=== PATIENT | male | born 1960 | race Two or more races ===

== ENCOUNTER 2025-11-07 15:08 | Inpatient (IN) | payer BC, OTHER ==
[~2025-11-07] VITALS: Ht 190.5 cm; Wt 124.9 kg
--- NOTE | 2025-11-07 15:24 | ECG ---
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
[2025-11-07 15:25] VITALS: PULSE 168; RESP 18; O2SAT 93
--- NOTE | 2025-11-07 15:45 | ECG ---
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
--- NOTE | 2025-11-07 15:46 | ED.PDOC ---
HPI Comments HPI: Patel 65 y.o male presents to the ED for a chief complaint of palpitations associated with SOB and dizziness that started earlier today. Patient reports being seen at [facility] however was referred to the ED s/p HR reading in the 160's. Patient reports a burning smell and her family did not have the same smell sensation. Patient mentions 6 years ago similar c/o, was seen by paratransit operator who performed a full cardiac evaluation and found no abnormalities. Since, has had no cardiac issues or symptoms up until today. He denies any nausea, vomiting, fever, chills, abdominal pain or leg swelling. Initial Vitals BP: 103/66 HR: 180 RR: 24 O2: 98% RA Temp: 98.2 F Past Medical History: Kidney cancer, HTN, HLD, hernia, enlarged prostate Past Surgical History: Right nephrectomy Social History: Denies Allergies: NKDA HPI: Poor Historian. Valsalva maneuver was attempted as soon as I saw the patient. Patient's heart rate was in the 160s with EKGs showing SVT. Patient converted to sinus rhythm without any medications. REVIEW OF SYSTEMS: CONSTITUTIONAL: Denies acute: fever, diaphoresis, chills, HEAD: Denies acute: headache, photophobia Eyes: Denies acute: Double vision, vision loss, eye pain, eye discharge. EARS: Denies acute: tinnitus, hearing loss, ear discharge, ear pain, THROAT: Denies acute: sore throat, swelling, difficulty swallowing , pain with swallowing, change in voice. NECK: Denies acute: neck pain, neck swelling, stiff neck. HEART: Denies acute : chest pain, LUNGS: Denies acute: wheezing, cough, hemoptysis ABDOMEN: Denies acute: abdominal pain, Nausea, Vomiting, diarrhea, melena , hematemesis, hematochezia SKIN: Denies acute: rash, redness, lesions, itchiness. EXTREMITIES: Denies acute: calf pain, numbness, tingling, weakness, denies pain in extremity. Denies acute: Low back pain. Neuro: Denies acute: focal neurological deficit, motor or sensory focal neurological deficit, tremors, seizure like activity, confusion, change in mental status, loss of bowel or bladder function, cauda equina like symptoms. : Denies acute: dysuria, hematuria, flank pain, increase in urinary frequency. PSYCH: Denies acute: hallucination, suicidal ideation, homicidal ideation. PHYSICAL EXAM: General: ---moderate-----acute distress, awake and alert. Head: normocephalic, atraumatic. No raccoon's eyes, no duran sign. Neck: supple, trachea is midline, no swelling. Throat: Normal phonation. Eyes:, no erythema, no purulent discharge, no proptosis, no icterus. Heart: regular tachycardic, no significant murmur appreciated. Lungs: no apparent respiratory distress, Able to speak in full sentences. No wheezing, no rhonchi, no crackles. No stridors Clear to auscultation bilaterally. Abdomen: non tender to palpation, non distended, soft, no guarding, no rebound, + bowel sounds. Neuro: Awake, Alert, oriented to name, self, situation, follows commands GCS=15. Speech is normal. Skin: no petechia, no purpura, no cyanosis, non-pale, not jaundice. Lower extremities: --trace bilateral - Pitting edema no deformity, no focal swelling, no calf TTP. Makes eye contact. moves all four extremities. Face: no apparent facial droop. Ambulating in the ED independently. ED COURSE: DISCLAIMER: This medical document was created using an electronic medical record system with voice recognition software and computerized dictation system. Although this document has been carefully reviewed, there might still be some phonetic and typographical errors. Occasional wrong-word or "sound-alike" substitutions may have occurred due to the inherent limitations of voice recognition software. These areas are purely typographical due to imperfections of the software programs and do not reflect any compromise in the patient's medical care. Please read the chart carefully and recognize, using context, where these substitutions have occurred. Chief Complaint: Palpitations Time Seen by MD: 15:14 Reviewed Notes: Allergies Allergies: Coded Allergies: NO KNOWN ALLERGIES (Unverified , 11/07/25) Information Source: Patient Mode of Arrival: Ambulatory Severity: Moderate Timing: Hours Was a procedure done? Was a procedure done?: Yes Sedation Sedation?: No Cardioversion Vagal maneuver: Were attempted Attempts: x1 Resulted Rhythm: NSR Direct Supervision: Yes Informed consent obtained: Yes Risks/benefits/alt described: Yes Notes Valsalva maneuver was attempted as soon as I saw the patient. Patient's heart rate was in the 160s with EKGs showing SVT. Patient converted to sinus rhythm without any medications. CP Differential Dx Differential Diagnosis: N/A Differential Diagnosis: Angina, Aortic dissection, Chest Wall Pain, Cholelithiasis, Costochondritis, Pericarditis X-Ray, Labs, Meds, VS Vital Signs Date Time Temp Pulse Resp B/P (MAP) Pulse Ox O2 Delivery O2 Flow Rate FiO2 11/07/25 16:16 90 11/07/25 15:46 96 11/07/25 15:37 98.1 95 18 114/77 (89) 95 98.1 11/07/25 15:25 168 11/07/25 15:25 168 18 93 Room Air* 0 21 11/07/25 15:25 168 18 103/66 (78) 93 11/07/25 15:17 165 11/07/25 15:14 98.2 180 24 98 98.2 Lab Test 11/07/25 18:45 11/07/25 17:40 11/07/25 17:15 11/07/25 16:40 Range/Units Troponin I High Sensitivity Pending 88 *H </=54 ng/L Lactic Acid Level 1.5 0.4-2.0 mmol/L Urine Color Light-yellow Yellow Urine Clarity Clear Clear Urine pH 5.0 5.0-9.0 Urine Specific [place] 1.012 1.001-1.035 Urine Protein 1+ H Negative Urine Ketones Negative Negative Urine Blood Trace H Negative /uL Urine Nitrite Negative Negative Urine Bilirubin Negative Negative Urine Urobilinogen Normal Negative mg/dL Urine Leukocyte Esterase Negative Negative /uL Urine RBC 1 0 - 3 /hpf Urine Microscopic WBC 4 H 0-3 /HPF Urine Squamous Epithelial Cells Few <5 /hpf Urine Bacteria None seen None Seen /hpf Urine Mucus Few None Seen Urine Glucose Normal Normal mg/dL Test 11/07/25 15:45 Range/Units White Blood Count 11.9 H 4.4-10.8 10^3/uL Red Blood Count 5.37 4.5-5.90 10^6/uL Hemoglobin 15.5 13.5-17.5 g/dL Hematocrit 46.7 41.0-53.0 % Mean Corpuscular Volume 86.9 80.0-100.0 fL Mean Corpuscular Hemoglobin 29.0 28.0-32.0 pg Mean Corpuscular Hemoglobin Concent 33.3 32.0-36.0 g/dL Red Cell Distribution Width 13.2 11.8-14.3 % Platelet Count 237 140-450 10^3/uL Mean Platelet Volume 8.5 6.9-10.8 fL Neutrophils (%) (Auto) 81.6 H 37.0-80.0 % Lymphocytes (%) (Auto) 11.6 10.0-50.0 % Monocytes (%) (Auto) 5.5 0.0-12.0 % Eosinophils (%) (Auto) 0.8 0.0-7.0 % Basophils (%) (Auto) 0.5 0.0-2.0 % Neutrophils # (Auto) 9.7 H 1.6-8.6 10 ^3/uL Lymphocytes # (Auto) 1.4 0.4-5.4 10 ^3/uL Monocytes # (Auto) 0.7 0-1.3 10 ^3/uL Eosinophils # (Auto) 0.1 0-0.8 10 ^3/uL Basophils # (Auto) 0.1 0-0.2 10 ^3/uL Nucleated Red Blood Cells 0.1 % Sodium Level 138 136-145 mmol/L Potassium Level 3.9 3.5-5.1 mmol/L Chloride Level 104 98-107 mmol/L Carbon Dioxide Level 23 20-31 mmol/L Anion Gap 11 5-15 Blood Urea Nitrogen 22 9-23 mg/dL Creatinine 1.31 H 0.700-1.30 mg/dL Glomerular Filtration Rate Calc 61 >90 mL/min BUN/Creatinine Ratio 16.8 10.0-20.0 Serum Glucose 161 H 74-106 mg/dL Lactic Acid Level 2.6 *H 0.4-2.0 mmol/L Calcium Level 8.8 8.7-10.4 mg/dL Magnesium Level 2.0 1.6-2.6 mg/dL Total Bilirubin 0.4 0.2-1.0 mg/dL Aspartate Amino Transferase (AST) 51 H 13-40 U/L Alanine Aminotransferase (ALT) 74 H 7-40 U/L Alkaline Phosphatase 78 46-116 U/L Troponin I High Sensitivity 27 </=54 ng/L Total Protein 6.6 5.7-8.2 g/dL Albumin 4.2 3.2-4.8 g/dL Thyroid Stimulating Hormone (TSH) 2.07 0.55-4.78 uIU/mL Current Medications Medications (Trade) Dose Ordered Sig/Calvin Route Start Time Stop Time Status Last Admin Sodium Chloride 1,000 ml @ 1,000 mls/hr Q1H ONCE IV 11/07/25 15:30 11/07/25 16:29 DC 11/07/25 16:05 Aspirin 325 mg ONCE ONCE PO 11/07/25 17:15 11/07/25 17:16 DC 11/07/25 17:28 [place] [id number] Ph: [phone] DIAGNOSTIC IMAGING Diagnostic Imaging Report : [id number] Signed PATIENT: DEWAYNE PATEL ACCT: [id number] UNIT: [id number] : 1960 LOC: ER ROOM / BED: / AGE / SEX: 65 / M ADM STATUS: REG ER SERVICE 11 ORDERING PHYSICIAN: RASHEEDA KAHN MD PROCEDURE(s): CXR1 - CHEST XRAY 1 VIEW REASON: PALPITATIONS ORDER NUMBER(s): [id number], ACCESSION NUMBER(s): [id number] CHEST RADIOGRAPH INDICATION: PALPITATIONS TECHNIQUE: Single frontal view of the chest was obtained COMPARISON: None FINDINGS: Lines and Tubes: None Lungs: No focal consolidation. Pleura: No effusion. No pneumothorax. Cardiomediastinal contours: Unremarkable Bones: No acute osseous abnormality. IMPRESSION: 1. No acute cardiopulmonary disease. ATED BY: SANJIV MICHELLE Jr., DO DICTATED DATE/TIME: 11/07/251610 SIGNED BY: SANJIV MICHELLE Jr., DO SIGNED DATE/TIME: 11/07/251610 CC: Time of 1ST Reevaluation: 15:45 Reevaluation 1ST: Unchanged Patient Education/Counseling: Diagnosis, Treatment Family Education/Counseling: No Family Present Departure 1 Departure Time of Disposition: 15:55 Impression: Primary Impression: SVT (supraventricular tachycardia) Additional Impression: Elevated troponin Disposition: 09 ADMITTED INPATIENT Admit to: Tele Condition: Guarded Discharged With: Self Critical Care Note Critical Care Time?: No Heart Score Heart Score: Heart Score Response (Comments) Value History N/A 0 EKG N/A 0 Age N/A 0 Risk Factors N/A 0 Troponin N/A 0 Total 0 I personally scribed for CHANELLE SHCROEDER DO ([email or web address]) on 11/07/25 at 15:46. Electronically submitted by Ely Stacy ([facility]). I personally scribed for CHANELLE SCHROEDER DO ([email or web address]) on 11/07/25 at 16:11. Electronically submitted by Ely Stacy ([facility]). I personally scribed for CHANELLE SCHROEDER DO ([email or web address]) on 11/07/25 at 19:02. Electronically submitted by Ely Stacy ([facility]). CHANELLE SCHROEDER DO Nov 07, 2025 15:46
[2025-11-07 16:03] LABS: Hematocrit 46.7 % (41.0-53.0); Hemoglobin 15.5 g/dL (13.5-17.5); Mean Corpuscular Hemoglobin 29.0 pg (28.0-32.0); Mean Corpuscular Volume 86.9 fL (80.0-100.0); Nucleated Red Blood Cells % 0.1 %
[2025-11-07] MEDS: SODIUM CHLORIDE 0.9% 1,000 ML IV ONE ×2 (16:05→19:57)
--- NOTE | 2025-11-07 16:14 | DVH ---
CHEST RADIOGRAPH INDICATION: PALPITATIONS TECHNIQUE: Single frontal view of the chest was obtained COMPARISON: None FINDINGS: Lines and Tubes: None Lungs: No focal consolidation. Pleura: No effusion. No pneumothorax. Cardiomediastinal contours: Unremarkable Bones: No acute osseous abnormality. IMPRESSION: 1. No acute cardiopulmonary disease.
[2025-11-07 16:23] LABS: Alanine Aminotransferase 74 U/L (7-40); Albumin 4.2 g/dL (3.2-4.8); Alkaline Phosphatase 78 U/L (46-116); Anion Gap 11 (5-15); BUN/Creatinine Ratio 16.8 (10.0-20.0); Blood Urea Nitrogen 22 mg/dL (9-23); Calcium 8.8 mg/dL (8.7-10.4); Carbon Dioxide 23 mmol/L (20-31); Chloride 104 mmol/L (98-107); Glucose 161 mg/dL (74-106); Magnesium 2.0 mg/dL (1.6-2.6); Potassium 3.9 mmol/L (3.5-5.1); Sodium 138 mmol/L (136-145); Total Protein 6.6 g/dL (5.7-8.2)
[2025-11-07 16:24] LABS: Bilirubin, Total 0.4 mg/dL (0.2-1.0)
[2025-11-07 16:25] LABS: Lactic Acid w/Reflex 2.6 mmol/L (0.4-2.0)
[2025-11-07 17:32] LABS: Urine Protein, UAD 1+ (Negative)
[2025-11-07 19:44] VITALS: PULSE 77; RESP 18; O2SAT 94
[2025-11-07] MEDS ORDERED: ONDANSETRON HCL 4 MG/2 ML VIAL IV PRN (19:45)
[2025-11-07] MEDS ORDERED: HYDROcodone-ACET 5/325MG TAB PO PRN (19:45)
[2025-11-07] MEDS ORDERED: DOCUSATE SOD 100 MG CAP PO PRN (19:45)
--- NOTE | 2025-11-07 20:03 | DVHHP2 ---
History of Present Illness Reason for Visit: SVT (supraventricular tachycardia) History of Present Illness The patient is a 65-year-old male with past medical history of kidney cancer, hypertension, hernia, hyperlipidemia, and enlarged prostate who presented to [facility] ED with complaint of palpitations. Patient reports that he has been experiencing racing heart associated with shortness of breaths, dizziness, getting worse that prompted this visit. Patient reports being seen at [facility] urgent care, however was referred to the ED due to elevated heart rate in the 160s. Patient reports burning smell and her family did not have the same smell sensation, reports similar symptoms 6 years ago and was seen by machine repairman who performed a full cardiac evaluation and found no abnormalities..Patient was seen and evaluated in the ED, laboratory data shows WBC 11.9, platelets 237, sodium 138, potassium 3.9, BUN 22, creatinine 1.31, GFR 61, glucose 161, hemoglobin A1c 6.0, calcium 8.8, lactic acid 2.6 trending down to 1.5, troponin 88, TSH 2.07, AST 51, ALT 74, blood pressure 114/77, heart rate 180 trending down to 96, temperature 98.1 F, O2 saturation 95% on oxygen. Chest x-ray show no acute cardiopulmonary disease. Please see medication orders section in the computer. On my assessment, patient denied chest pain, no headache, dizziness, diaphoresis, shortness of breaths, no abdominal pain, diarrhea, nausea, vomiting, fever, no chills. Patient was admitted for further evaluation and medical management. Past Medical History Kidney cancer, HTN, HLD, Hernia, Enlarged prostate Past Surgical History Right nephrectomy Family History Reviewed, noncontributory to the management of this case. Past Social History The patient lives at home, denies smoking, alcohol or illicit drugs abuse. Review of Systems Constitutional: Yes: Weakness; No: Fever, Chills, Sweats, Malaise, Other Eyes: No: Pain, Vision change, Conjunctivae inflammation, Eyelid inflammation, Other, Redness ENT: No: Ear pain, Ear discharge, Nose pain, Nose discharge, Nose congestion, Mouth pain, Mouth swelling, Throat pain, Throat swelling, Other Respiratory: Shortness of breath; No: Cough, Dry, SOB with excertion, Wheezing, Hemoptysis, Pleuritic Pain, Sputum, Wheezing, Other Cardiovascular: Palpitations; No: Chest Pain, Orthopnea, Paroxysmal Noc. Dyspnea, Edema, Lt Headedness, Other Gastrointestinal: No: Nausea, Vomiting, Abdominal Pain, Diarrhea, Constipation, Melena, Hematochezia, Other Genitourinary: No Dysuria, No Frequency, No Incontinence, No Hematuria, No Retention, No Other Musculoskeletal: No: other, neck pain, shoulder pain, arm pain, back pain, hand pain, leg pain, foot pain Skin: No: Rash, Lesions, Jaundice, Bruising, Other Neurological: Other (Dizziness); No: Weakness, Numbness, Incoordination, Change in speech, Confusion, Seizures Allergies: Coded Allergies: NO KNOWN ALLERGIES (Unverified , 11/07/25) Medications Current Medications Medications Dose Ordered Sig/Calvin Route Start Time Stop Time Status Last Admin Dose Admin Atorvastatin Calcium 20 mg HS PO 11/07/25 22:00 UNV Aspirin 81 mg DAILY PO 11/08/25 10:00 UNV Tamsulosin HCl 0.4 mg QPM PO 11/08/25 18:00 UNV Metoprolol Tartrate 25 mg BID PO 11/07/25 22:00 UNV Ceftriaxone Sodium 50 ml @ 100 mls/hr DAILY@09 IV 11/08/25 09:00 UNV Sodium Chloride 1,000 ml @ 60 mls/hr [id number] IV 11/07/25 19:45 UNV Acetaminophen/ Hydrocodone Bitart 1 tab Q4HP PRN PO 11/07/25 19:45 UNV Ondansetron HCl 4 mg Q4HP PRN IV 11/07/25 19:45 UNV Docusate Sodium 100 mg BIDPRN PRN PO 11/07/25 19:45 UNV Acetaminophen 650 mg Q6HP PRN PO 11/07/25 19:45 UNV Exam Vital Signs Vital Signs Date Time Temp Pulse Resp B/P (MAP) Pulse Ox O2 Delivery O2 Flow Rate FiO2 11/07/25 19:44 77 18 94 Room Air* 0 21 11/07/25 19:30 97.9 118/77 (91) 97.9 General Appearance: Alert, Oriented X3, Cooperative, No acute distress HEENT: Atraumatic, PERRLA, EOMI, Mucous membr. moist/pink Respiratory: Normal air movement Cardiovascular: Normal S1, Normal S2, No murmurs, Other (Irregular rate) Abdominal: Normal bowel sounds, Soft, No tenderness, No hepatospenomegaly, No masses Extremities: No clubbing, No cyanosis, No edema, Normal pulses, No tenderness/swelling Skin: No rashes, No significant lesion Neuro: Normal speech, Normal tone, Sensation intact, Cranial nerves 3-12 NL, Reflexes 2+, Other (Generalized weakness) Psych/Mental Status: Mental status NL, Mood NL Labs/Xrays Labs Test 11/07/25 18:45 11/07/25 17:40 11/07/25 17:15 11/07/25 15:45 Range/Units Troponin I High Sensitivity 340 *H </=54 ng/L Lactic Acid Level 1.5 0.4-2.0 mmol/L Urine Color Light-yellow Yellow Urine Clarity Clear Clear Urine pH 5.0 5.0-9.0 Urine Specific [place] 1.012 1.001-1.035 Urine Protein 1+ H Negative Urine Ketones Negative Negative Urine Blood Trace H Negative /uL Urine Nitrite Negative Negative Urine Bilirubin Negative Negative Urine Urobilinogen Normal Negative mg/dL Urine Leukocyte Esterase Negative Negative /uL Urine RBC 1 0 - 3 /hpf Urine Microscopic WBC 4 H 0-3 /HPF Urine Squamous Epithelial Cells Few <5 /hpf Urine Bacteria None seen None Seen /hpf Urine Mucus Few None Seen Urine Glucose Normal Normal mg/dL White Blood Count 11.9 H 4.4-10.8 10^3/uL Red Blood Count 5.37 4.5-5.90 10^6/uL Hemoglobin 15.5 13.5-17.5 g/dL Hematocrit 46.7 41.0-53.0 % Mean Corpuscular Volume 86.9 80.0-100.0 fL Mean Corpuscular Hemoglobin 29.0 28.0-32.0 pg Mean Corpuscular Hemoglobin Concent 33.3 32.0-36.0 g/dL Red Cell Distribution Width 13.2 11.8-14.3 % Platelet Count 237 140-450 10^3/uL Mean Platelet Volume 8.5 6.9-10.8 fL Neutrophils (%) (Auto) 81.6 H 37.0-80.0 % Lymphocytes (%) (Auto) 11.6 10.0-50.0 % Monocytes (%) (Auto) 5.5 0.0-12.0 % Eosinophils (%) (Auto) 0.8 0.0-7.0 % Basophils (%) (Auto) 0.5 0.0-2.0 % Neutrophils # (Auto) 9.7 H 1.6-8.6 10 ^3/uL Lymphocytes # (Auto) 1.4 0.4-5.4 10 ^3/uL Monocytes # (Auto) 0.7 0-1.3 10 ^3/uL Eosinophils # (Auto) 0.1 0-0.8 10 ^3/uL Basophils # (Auto) 0.1 0-0.2 10 ^3/uL Nucleated Red Blood Cells 0.1 % Sodium Level 138 136-145 mmol/L Potassium Level 3.9 3.5-5.1 mmol/L Chloride Level 104 98-107 mmol/L Carbon Dioxide Level 23 20-31 mmol/L Anion Gap 11 5-15 Blood Urea Nitrogen 22 9-23 mg/dL Creatinine 1.31 H 0.700-1.30 mg/dL Glomerular Filtration Rate Calc 61 >90 mL/min BUN/Creatinine Ratio 16.8 10.0-20.0 Serum Glucose 161 H 74-106 mg/dL Calcium Level 8.8 8.7-10.4 mg/dL Magnesium Level 2.0 1.6-2.6 mg/dL Total Bilirubin 0.4 0.2-1.0 mg/dL Aspartate Amino Transferase (AST) 51 H 13-40 U/L Alanine Aminotransferase (ALT) 74 H 7-40 U/L Alkaline Phosphatase 78 46-116 U/L Total Protein 6.6 5.7-8.2 g/dL Albumin 4.2 3.2-4.8 g/dL Thyroid Stimulating Hormone (TSH) 2.07 0.55-4.78 uIU/mL PATIENT: DEWAYNE PATEL ACCT: [id number] UNIT: [id number] : 1960 LOC: ER ROOM / BED: / AGE / SEX: 65 / M ADM STATUS: REG ER SERVICE [id number] ORDERING PHYSICIAN: RASHEEDA KAHN MD PROCEDURE(s): CXR1 - CHEST XRAY 1 VIEW REASON: PALPITATIONS ORDER NUMBER(s): [id number], ACCESSION NUMBER(s): [id number] CHEST RADIOGRAPH INDICATION: PALPITATIONS TECHNIQUE: Single frontal view of the chest was obtained COMPARISON: None FINDINGS: Lines and Tubes: None Lungs: No focal consolidation. Pleura: No effusion. No pneumothorax. Cardiomediastinal contours: Unremarkable Bones: No acute osseous abnormality. IMPRESSION: 1. No acute cardiopulmonary disease. SEPSIS Sepsis Screen Date sepsis recognized/suspect: Nov 07, 2025 Time Sepsis recognized/suspect: 1943 Recent Procedure: No On Antibiotic Therapy: No Respiratory Rate >20: No Heart Rate >90: No Temp<36 C (96.8 F) or >38.3 C: No SBP <90 or MAP <65 mmHG: No New Acute Mental Status Change: No Is the patient on CPAP, BIPAP,: No Physician Orders Electrocardigram (11/07/25 18:12) Chest Xray 1 View (11/07/25 15:12) Benzene Still Utility Operator (11/07/25 ) Cardiac Diet-2gna,Lofat,Lochol (11/07/25 Dinner) Sodium Chloride 0.9% (11/07/25 19:30) Atorvastatin (Lipitor) (11/07/25 22:00) Aspirin Chewable Tablet (11/08/25 10:00) Tamsulosin Hydrochloride (Flomax) (11/08/25 18:00) Hemoglobin A1c (11/07/25 19:37) Metoprolol Tartrate Tablet (Lopressor Ta (11/07/25 22:00) Troponin-I Hs (11/07/25 20:37) Troponin-I Hs (11/07/25 22:37) * Cardiology Consult (11/07/25 19:37) Ceftriaxone 1gm/50ml (Rocephin) (11/08/25 09:00) Ceftriaxone 1gm/50ml (Rocephin) (11/07/25 19:45) Allergies (11/07/25 19:37) Code Status (11/07/25 19:37) Sodium Chloride 0.9% (11/07/25 19:45) Oxygen Per Hour (11/07/25 19:37) Hydrocodone-Acet 5/325mg Tab (Luke 5/32 (11/07/25 19:45) Ondansetron Hcl (Zofran) (11/07/25 19:45) Docusate Sodium Capsule (Colace Capsule) (11/07/25 19:45) Fall Risk Precautions In Place QSHIFT (11/07/25 19:37) Complete Blood Count (11/08/25 04:00) Comprehensive Metabolic Panel (11/08/25 04:00) Condition: Serious (11/07/25 19:37) Acetaminophen Tablet (Tylenol Tablet) (11/07/25 19:45) Maintain Bed Rest (11/07/25 19:37) Sequential Compression Device (11/07/25 ) Admit (11/07/25 20:02) Nitroglycerin Sublingual (Ntrostat Subli (11/07/25 20:15) Morphine Sulfate Injection (11/07/25 20:15) Stat Ekg For Chest Pain (11/07/25 20:02) Notify Of Changes From Base (11/07/25 20:02) Marketing Programs Specialist For 24 Hours (11/07/25 20:02) Emergency Dysrhythmia Protocol (11/07/25 20:02) Rhythm Strips Once Every Shift (11/07/25 20:02) Oxygen By Nasal Cannula (11/07/25 20:02) Vital Signs Date Time Temp Pulse Resp B/P (MAP) Pulse Ox O2 Delivery O2 Flow Rate FiO2 11/07/25 19:44 77 18 94 Room Air* 0 21 11/07/25 19:30 97.9 77 18 118/77 (91) 94 97.9 11/07/25 16:16 90 11/07/25 15:46 96 11/07/25 15:37 98.1 95 18 114/77 (89) 95 98.1 11/07/25 15:25 168 11/07/25 15:25 168 18 93 Room Air* 0 21 11/07/25 15:25 168 18 103/66 (78) 93 11/07/25 15:17 165 11/07/25 15:14 98.2 180 24 98 98.2 Laboratory Tests Test 11/07/25 15:45 11/07/25 17:40 Lactic Acid Level 2.6 mmol/L (0.4-2.0) *H 1.5 mmol/L (0.4-2.0) White Blood Count 11.9 10^3/uL (4.4-10.8) H Medications Medications Dose Ordered Sig/Calvin Route Start Time Stop Time Status Last Admin Dose Admin Aspirin 325 mg ONCE ONCE PO 11/07/25 17:15 11/07/25 17:16 DC 11/07/25 17:28 325 MG Sodium Chloride 1,000 ml @ 1,000 mls/hr Q1H ONCE IV 11/07/25 15:30 11/07/25 16:29 DC 11/07/25 16:05 1,000 MLS/HR Sodium Chloride 1,000 ml @ 1,000 mls/hr Q1H ONCE IV 11/07/25 19:30 11/07/25 20:29 11/07/25 19:57 1,000 MLS/HR Assessment/Plan Assessment/Plan SVT (supraventricular tachycardia) Elevated troponin Hyperglycemia Elevated liver enzymes Leukocytosis, unspecified Plan 1. Admit to telemetry unit 2. Breathing treatment 3. Pain control management 4. IV antibiotic management 5. Management of fluids and electrolytes 6. Consultation for Cardiology 7. Diagnostic test chest x-ray 8. DVT prophylaxis-on aspirin 9. Repeat labs CBC, CMP in a.m. 10. Home medication reviewed and reconciled 11. Continue with current medical management 12. Treatment plan discussed with patient and RN. Patient verbalized understanding. Plan discussed with: Patient, Other (RN) My Orders Orders - SMITH MOSS DNP Procedure Category Date Status Time Atorvastatin (Lipitor) PHA 11/07/25 Logged 22:00 Aspirin Chewable PHA 11/08/25 Logged Tablet 10:00 Tamsulosin PHA 11/08/25 Logged Hydrochloride (Flomax) 18:00 Hemoglobin A1c LAB 11/07/25 In Process 19:37 Metoprolol Tartrate PHA 11/07/25 Logged Tablet (Lopressor Ta 22:00 Troponin-I Hs LAB 11/07/25 Logged 20:37 Troponin-I Hs LAB 11/07/25 Logged 22:37 * Cardiology Consult CONS 11/07/25 Transmitted 19:37 Ceftriaxone 1gm/50ml PHA 11/08/25 Logged (Rocephin) 09:00 Ceftriaxone 1gm/50ml PHA 11/07/25 Logged (Rocephin) 19:45 Allergies RAFI 11/07/25 In Process 19:37 Code Status CODE 11/07/25 Transmitted 19:37 Sodium Chloride 0.9% PHA 11/07/25 Logged 19:45 Oxygen Per Hour RT 11/07/25 Transmitted 19:37 Hydrocodone-Acet PHA 11/07/25 Logged 5/325mg Tab (Luke 19:45 Ondansetron Hcl [facility] 11/07/25 Logged (Zofran) 19:45 Docusate Sodium [facility] 11/07/25 Logged Capsule (Colace 19:45 Fall Risk Precautions [facility] 11/07/[address] 19:37 Complete Blood Count LAB 11/08/25 Verified 04:00 Comprehensive LAB 11/08/25 Verified Metabolic Panel 04:00 Condition: Serious [facility] 11/07/25 In Process 19:37 Acetaminophen Tablet [facility] 11/07/25 Logged (Tylenol Tablet) 19:45 Maintain Bed Rest [facility] 11/07/25 In Process 19:37 Sequential [facility] 11/07/25 In Process Compression Device Admit ADMIT 11/07/25 Verified 20:02 Nitroglycerin [facility] 11/07/25 Verified Sublingual (Ntrostat 20:15 Morphine Sulfate [facility] 11/07/25 Verified Injection 20:15 Stat Ekg For Chest [facility] 11/07/25 Verified Pain 20:02 Notify Md Of Changes [facility] 11/07/25 Verified From Base 20:02 Marketing Programs Specialist For [facility] 11/07/25 Verified 24 Hours 20:02 Emergency Dysrhythmia [facility] 11/07/25 Verified Protocol 20:02 Rhythm Strips Once [facility] 11/07/25 Verified Every Shift 20:02 Oxygen By Nasal 11/07/25 Verified Cannula 20:02 Problem List: (1) SVT (supraventricular tachycardia) (2) Elevated troponin (3) Hyperglycemia (4) Elevated liver enzymes (5) Leukocytosis, unspecified Date of Service: Nov 07, 2025 Billing Provider: SMITH MOSS DNP Common Visit Codes: [id number] INP/OBS CARE (HIGH) SMITH MOSS DNP Nov 07, 2025 20:03
[2025-11-07] MEDS: ATORVASTATIN 20 MG TAB PO SCH (20:08)
[2025-11-07] MEDS: SODIUM CHLORIDE 0.9% 1,000 ML IV SCH (20:09)
[2025-11-07] MEDS: METOPROLOL TARTRATE 25 MG TAB PO SCH (20:09)
[2025-11-07] MEDS ORDERED: NITROGLYCERIN 0.4 MG SL TAB SL PRN (20:15)
[2025-11-07] MEDS ORDERED: MORPHINE SULFATE INJ 2 MG/ml SYRG IV PRN (20:15)
[2025-11-07] MEDS ORDERED: DEXTROSE (50%) 50ML SYRG IV PRN (23:00)
[2025-11-07 23:29] VITALS: BP 114/82; PULSE 59; RESP 17; TEMP 98.2; O2SAT 95
[2025-11-07 23:39] VITALS: BP 115/67; PULSE 59; RESP 14; RESP 17; TEMP 97.9; O2SAT 94; O2SAT 95
[2025-11-08] VITALS (8 sets, daily range): BP systolic 135–160; BP diastolic 81–98; PULSE 58–77; RESP 17–20; TEMP 97.6–98.5; O2SAT 94–96
[2025-11-08] MEDS ORDERED: TAMS-35 PO (00:12)
[2025-11-08] MEDS: ACCU-CHEK COMFORT CURVE STRIP VI SCH (06:25)
[2025-11-08] MEDS: InsuLIN REG 1unit/0.01ml Soln (100units/ml) SC SCH (06:25)
[2025-11-08 07:54] LABS: Hematocrit 44.9 % (41.0-53.0); Hemoglobin 14.8 g/dL (13.5-17.5); Mean Corpuscular Hemoglobin 28.9 pg (28.0-32.0); Mean Corpuscular Volume 87.5 fL (80.0-100.0); Nucleated Red Blood Cells % 0.1 %
[2025-11-08 08:16] LABS: Albumin 4.0 g/dL (3.2-4.8); Alkaline Phosphatase 71 U/L (46-116); Anion Gap 7 (5-15); BUN/Creatinine Ratio 10.9 (10.0-20.0); Blood Urea Nitrogen 13 mg/dL (9-23); Calcium 9.1 mg/dL (8.7-10.4); Carbon Dioxide 29 mmol/L (20-31); Chloride 106 mmol/L (98-107); Glucose 101 mg/dL (74-106); Potassium 4.6 mmol/L (3.5-5.1); Sodium 142 mmol/L (136-145); Total Protein 6.5 g/dL (5.7-8.2)
[2025-11-08 08:17] LABS: Alanine Aminotransferase 60 U/L (7-40); Bilirubin, Total 0.6 mg/dL (0.2-1.0)
--- NOTE | 2025-11-08 11:51 | DVHINCON2 ---
Date Seen: Nov 08, 2025 Referring Physician CHAVA Tam Reason for Consultation Elevated troponin History of Present Illness This is a 65-year-old male patient who presents to the emergency room with chief complaint of palpitations. The patient reports that he was at home picking something up from his garage when suddenly he began to feel palpitations and dizziness. He also reports a burning smell. When symptoms did not subside, he decided to come to the emergency room for further evaluation. Upon emergency room arrival, a twelve lead electrocardiogram was performed and revealed supraventricular tachycardia. While undergoing a chest x-ray in the emergency room, the patient states that he was instructed to hold his breath and at that moment symptoms subsided. A repeat twelve lead electrocardiogram was performed and revealed that the patient was back in a normal sinus rhythm. At the time of assessment, the patient remains in normal sinus rhythm. Initial troponin level of 27ng/L with up trend and current peak level at 658ng/L. The patient denies all cardiac symptoms. Significant past medical history includes SVT in 2019 requiring adenosine administration, hypertension, dyslipidemia, renal carcinoma status post right nephrectomy in 2009, BPH, and obesity. The patient reports that in 2019 he went to [facility] with similar symptoms and was found to have SVT. He reports that he required adenosine administration and that he converted back into a normal sinus rhythm. He followed up with a carding machine feeder one time and states that he did not follow up after that. Past Medical History Past medical history reviewed. No other significant than mentioned above. Past Surgical History Rate total nephrectomy Umbilical hernia repair Family History: FH: cancer G8 MOTHER G8 SISTER Family History Family history reviewed. Social History Patient drinks at least one alcoholic drink per day Denies illicit drug use Denies tobacco use Allergies: Coded Allergies: NO KNOWN ALLERGIES (Unverified , 11/07/25) Home Meds Reported Medications Tamsulosin Hcl (Flomax) 0.4 Mg Cap, 1 CAP PO DAILY, #30 CAP 11 Refills 11/08/25 Home Meds Home medications reviewed. Current Medications Current Medications Medications (Trade) Dose Ordered Sig/Calvin Route PRN Reason Start Time Stop Time Status Last Admin Atorvastatin Calcium (Lipitor) 20 mg HS PO 11/07/25 22:00 11/07/25 20:08 Aspirin 81 mg DAILY PO 11/08/25 10:00 11/08/25 09:01 Tamsulosin HCl (Flomax) 0.4 mg QPM PO 11/08/25 18:00 Metoprolol Tartrate (Lopressor Tablet) 25 mg BID PO 11/07/25 22:00 11/08/25 09:02 Ceftriaxone Sodium 50 ml @ 100 mls/hr DAILY@09 IV 11/08/25 09:00 11/08/25 09:01 Sodium Chloride 1,000 ml @ 60 mls/hr [id number] IV 11/07/25 19:45 11/07/25 20:09 Acetaminophen/ Hydrocodone Bitart ([place] 5/325MG Tab) 1 tab Q4HP PRN PO MODERATE PAIN (4-6 PAIN SCALE) 11/07/25 19:45 Ondansetron HCl (Zofran) 4 mg Q4HP PRN IV NAUSEA / VOMITING 11/07/25 19:45 Docusate Sodium (Colace Capsule) 100 mg BIDPRN PRN PO FOR CONSTIPATION 11/07/25 19:45 Acetaminophen (Tylenol Tablet) 650 mg Q6HP PRN PO PAIN SCALE 1-3 OR TEMP>100.4 11/07/25 19:45 Nitroglycerin (Ntrostat Sublingual) 0.4 mg Q5MINP PRN SL FOR CHEST PAIN 11/07/25 20:15 Morphine Sulfate 2 mg Q30M PRN IV FOR CHEST PAIN 11/07/25 20:15 Diagnostic Test (Pha) (Accu-Chek Comfort Curve T) 1 strip ACHS 11/08/25 07:00 11/08/25 11:26 Insulin Human Regular (InsuLIN R) ACHS SC 11/08/25 07:00 Dextrose 50 ml UD PRN IV Blood Sugar LESS THAN 60 11/07/25 23:00 Review of Systems Constitutional: No symptom reported Ears, Nose, & Throat: Burning smell Eyes: No symptom reported Neurological: Dizziness Pulmonary/Respiratory: No symptoms reported Cardiovascular: Palpitations Gastrointestinal: No symptom reported Genitourinary: No symptom reported Musculoskeletal: No symptom reported Skin: No symptom reported Psychiatric: No symptom reported Endocrine: No symptom reported Hematologic/Lymphatic: No symptom reported Vital Signs Vital Signs Date Time Temp Pulse Resp B/P (MAP) Pulse Ox O2 Delivery O2 Flow Rate FiO2 11/08/25 09:02 64 148/89 11/08/25 08:53 97.6 20 94 97.6 11/08/25 08:00 Room Air* 0 21 Physical Exam General Appearance: Cooperative. Obese Pulmonary/Respiratory: Clear, bilateral breaths sounds. Cardiovascular/Chest: Regular rate and rhythm. Peripheral Pulses: 2+ Radial (R). 2+ Radial (L). 2+ Pedal (R). 2+ Pedal (L) Abdominal Exam: Normal bowel sounds. Ankle Exam: Negative ankle edema Lower extremities: Negative lower extremity edema Neuro/Mental Status: A/OX4, coherent. Thoughts/Psych: Normal thought pattern. Appropriate mood and affect. Good judgment and insight. Appearance: No acute distress. Skin Exam: Normal inspection. Normal color. Warm and dry. Labs/Diagnostic Data Labs Test 11/08/25 07:01 11/08/25 06:23 11/07/25 22:26 11/07/25 17:40 Range/Units White Blood Count 8.2 # 4.4-10.8 10^3/uL Red Blood Count 5.14 4.5-5.90 10^6/uL Hemoglobin 14.8 13.5-17.5 g/dL Hematocrit 44.9 41.0-53.0 % Mean Corpuscular Volume 87.5 80.0-100.0 fL Mean Corpuscular Hemoglobin 28.9 28.0-32.0 pg Mean Corpuscular Hemoglobin Concent 33.0 32.0-36.0 g/dL Red Cell Distribution Width 13.3 11.8-14.3 % Platelet Count 207 140-450 10^3/uL Mean Platelet Volume 8.4 6.9-10.8 fL Neutrophils (%) (Auto) 66.9 37.0-80.0 % Lymphocytes (%) (Auto) 21.8 10.0-50.0 % Monocytes (%) (Auto) 9.2 0.0-12.0 % Eosinophils (%) (Auto) 1.5 0.0-7.0 % Basophils (%) (Auto) 0.6 0.0-2.0 % Neutrophils # (Auto) 5.5 1.6-8.6 10 ^3/uL Lymphocytes # (Auto) 1.8 0.4-5.4 10 ^3/uL Monocytes # (Auto) 0.8 0-1.3 10 ^3/uL Eosinophils # (Auto) 0.1 0-0.8 10 ^3/uL Basophils # (Auto) 0.1 0-0.2 10 ^3/uL Nucleated Red Blood Cells 0.1 % Sodium Level 142 136-145 mmol/L Potassium Level 4.6 3.5-5.1 mmol/L Chloride Level 106 98-107 mmol/L Carbon Dioxide Level 29 20-31 mmol/L Anion Gap 7 5-15 Blood Urea Nitrogen 13 9-23 mg/dL Creatinine 1.19 0.700-1.30 mg/dL Glomerular Filtration Rate Calc 69 >90 mL/min BUN/Creatinine Ratio 10.9 10.0-20.0 Serum Glucose 101 74-106 mg/dL Calcium Level 9.1 8.7-10.4 mg/dL Total Bilirubin 0.6 0.2-1.0 mg/dL Aspartate Amino Transferase (AST) 36 13-40 U/L Alanine Aminotransferase (ALT) 60 H 7-40 U/L Alkaline Phosphatase 71 46-116 U/L Total Protein 6.5 5.7-8.2 g/dL Albumin 4.0 3.2-4.8 g/dL POC Glucose 116 H 70-106 mg/dl Troponin I High Sensitivity 658 *H </=54 ng/L Lactic Acid Level 1.5 0.4-2.0 mmol/L Test 11/07/25 17:15 11/07/25 15:45 Range/Units Urine Color Light-yellow Yellow Urine Clarity Clear Clear Urine pH 5.0 5.0-9.0 Urine Specific [place] 1.012 1.001-1.035 Urine Protein 1+ H Negative Urine Ketones Negative Negative Urine Blood Trace H Negative /uL Urine Nitrite Negative Negative Urine Bilirubin Negative Negative Urine Urobilinogen Normal Negative mg/dL Urine Leukocyte Esterase Negative Negative /uL Urine RBC 1 0 - 3 /hpf Urine Microscopic WBC 4 H 0-3 /HPF Urine Squamous Epithelial Cells Few <5 /hpf Urine Bacteria None seen None Seen /hpf Urine Mucus Few None Seen Urine Glucose Normal Normal mg/dL Hemoglobin A1c 6.0 H <5.7 % A1C Magnesium Level 2.0 1.6-2.6 mg/dL Thyroid Stimulating Hormone (TSH) 2.07 0.55-4.78 uIU/mL Assessment Supraventricular tachycardia, now normal sinus rhythm NSTEMI, likely type 2 secondary to above Rule out structural heart disease History of SVT Hypertension Dyslipidemia BPH Alcohol use Obesity Plan/Recommendation We will continue with the following plan/recommendations (): Patient seen and examined at bedside with . We will proceed with obtaining a transthoracic echocardiogram to evaluate cardiac function. Continue with low-dose beta-eddie as this is a class I recommendation. For acute management of SVT, vagal maneuvers and adenosine are recommended. Consider DC cardioversion if patient becomes unstable. Per ACC guidelines, long-term manag ement should include watchful waiting, medication and possibly a catheter ablation if deemed necessary. The patient was also educated about abstaining from alcohol as this could be a possible trigger for SVT. The patient admits he drinks approximately one or more alcoholic drinks per day. The patient will need to establish a carding machine feeder in the outpatient setting. The patient was given information about following up with in the outpatient setting post discharge. Continue with close cardiac surveillance and notify cardiology team immediately for any ECG changes. In the setting of an unremarkable transthoracic echocardiogram, there is no further inpatient cardiac workup indicated. The patient may benefit from an outpatient event monitor and/or catheter ablation. This was discussed with the patient and he verbalized an understanding. Thank you for allowing us to care for this patient. Please call with any questions or concerns. Critical care time spent: 44 minutes This medical document was created using an electronic medical record system with voice recognition software and computerized dictation system. Although this document has been carefully reviewed, there might still be some phonetic and typographical errors. Occasional wrong-word or ``sound-alike substitutions may have occurred due to the inherent limitations of voice recognition software. These areas are purely typographical due to imperfections of the software programs and do not reflect any compromise in the patient's medical care. Please read the chart carefully and recognize, using context, where these substitutions have occurred. Plan discussed with: Patient NYHA Physical activity limitations: NA Date of Service: Nov 08, 2025 Billing Provider: NUBIA CERVANTES Cardiology Common Codes: [id number] INP/OBS CARE (High) Cardiology Consultation Codes: [id number] CONSULT <45MIN NUBIA CERVANTES Nov 08, 2025 11:51
--- NOTE | 2025-11-08 16:13 | DVHPN2 ---
Subjective Seen in bed with no chest pain Reviewed: H&P Changes from previous H/P or p: No Changes Eyes: No Pain, No Vision change, No Conjunctivae inflammation, No Eyelid inflammation, No Other, No Redness ENT: No Ear pain, No Ear discharge, No Nose pain, No Nose discharge, No Nose congestion, No Mouth pain, No Mouth swelling, No Throat pain, No Throat swelling, No Other Cardiovascular: No Chest Pain; Palpitations; No Orthopnea, No Paroxysmal Noc. Dyspnea, No Edema, No Lt Headedness, No Other Respiratory: No Cough, No Dry; Shortness of breath; No SOB with excertion, No Wheezing, No Hemoptysis, No Pleuritic Pain, No Sputum, No Other Gastrointestinal: No Nausea, No Vomiting, No Abdominal Pain, No Diarrhea, No Constipation, No Melena, No Hematochezia, No Other Genitourinary: No Dysuria, No Frequency, No Incontinence, No Hematuria, No Retention, No Other Musculoskeletal: No other, No neck pain, No shoulder pain, No arm pain, No back pain, No hand pain, No leg pain, No foot pain Skin: No Rash, No Lesions, No Jaundice, No Bruising, No Other Objective Vitals Vital Signs Date Time Temp Pulse Resp B/P (MAP) Pulse Ox O2 Delivery O2 Flow Rate FiO2 11/08/25 13:00 98.1 58 20 147/94 (111) 95 98.1 11/08/25 08:00 Room Air* 0 21 Intake/Output Intake and Output 11/08/25 05:00 Intake Total 2320 ml Balance 2320 ml Intake Oral 100 ml IV Total 2220 ml # Voids 3 General Appearance: Alert, Oriented X3 HEENT: Atraumatic Cardiovascular: Regular rate, Normal S1, Normal S2 Abdomen: Normal bowel sounds Medications Current Medications Medications Dose Ordered Sig/Calvin Route Start Time Stop Time Status Last Admin Dose Admin Atorvastatin Calcium 20 mg HS PO 11/07/25 22:00 11/07/25 20:08 20 MG Aspirin 81 mg DAILY PO 11/08/25 10:00 11/08/25 09:01 81 MG Tamsulosin HCl 0.4 mg QPM PO 11/08/25 18:00 Metoprolol Tartrate 25 mg BID PO 11/07/25 22:00 11/08/25 09:02 25 MG Ceftriaxone Sodium 50 ml @ 100 mls/hr DAILY@09 IV 11/08/25 09:00 11/08/25 09:01 100 MLS/HR Sodium Chloride 1,000 ml @ 60 mls/hr [id number] IV 11/07/25 19:45 11/07/25 20:09 60 MLS/HR Acetaminophen/ Hydrocodone Bitart 1 tab Q4HP PRN PO 11/07/25 19:45 Ondansetron HCl 4 mg Q4HP PRN IV 11/07/25 19:45 Docusate Sodium 100 mg BIDPRN PRN PO 11/07/25 19:45 Acetaminophen 650 mg Q6HP PRN PO 11/07/25 19:45 Nitroglycerin 0.4 mg Q5MINP PRN SL 11/07/25 20:15 Morphine Sulfate 2 mg Q30M PRN IV 11/07/25 20:15 Diagnostic Test (Pha) 1 strip ACHS 11/08/25 07:00 11/08/25 11:26 1 STRIP Insulin Human Regular ACHS SC 11/08/25 07:00 Dextrose 50 ml UD PRN IV 11/07/25 23:00 Laboratory Results Laboratory Tests 11/08/25 07:01 Chemistry Test 11/08/25 07:01 Albumin 4.0 g/dL (3.2-4.8) Calcium Level 9.1 mg/dL (8.7-10.4) Total Protein 6.5 g/dL (5.7-8.2) LFT Test 11/08/25 07:01 Alanine Aminotransferase (ALT) 60 U/L (7-40) H Alkaline Phosphatase 71 U/L (46-116) Aspartate Amino Transferase (AST) 36 U/L (13-40) Total Bilirubin 0.6 mg/dL (0.2-1.0) Urinalysis Test 11/07/25 17:15 Urine Color Light-yellow (Yellow) Urine Clarity Clear (Clear) Urine pH 5.0 (5.0-9.0) Urine Specific [place] 1.012 (1.001-1.035) Urine Protein 1+ (Negative) H Urine Ketones Negative (Negative) Urine Blood Trace /uL (Negative) H Urine Nitrite Negative (Negative) Urine Bilirubin Negative (Negative) Urine Urobilinogen Normal mg/dL (Negative) Urine Leukocyte Esterase Negative /uL (Negative) Urine RBC 1 /hpf (0 - 3) Urine Microscopic WBC 4 /HPF (0-3) H Urine Squamous Epithelial Cells Few /hpf (<5) Urine Bacteria None seen /hpf (None Seen) Urine Mucus Few (None Seen) Urine Glucose Normal mg/dL (Normal) Assessment/Plan Assessment/Plan SVT (supraventricular tachycardia) Elevated troponin Hyperglycemia Elevated liver enzymes Leukocytosis, unspecified Pending echo reviewed cardiology and monitor on telemetry Plan discussed with: Patient Date of Service: Nov 08, 2025 Billing Provider: FABIAN NORTH MD Common Visit Codes: [id number] INP/OBS CARE(HIGH) FABIAN NORTH MD Nov 08, 2025 16:13
[2025-11-08] MEDS: TAMSULOSIN HYDROCHLORIDE 0.4 MG CAP PO SCH (17:24)
[2025-11-08] MEDS: hydrALAZINE HCL 20 MG/ML VL IV PRN (17:25)
--- NOTE | 2025-11-08 17:43 | DVHSR ---
APPROVED REPORT EXAM: Two-dimensional and M-mode echocardiogram with Doppler and color Doppler. Blood Pressure: 148/89 mmHg INDICATION Evaluate cardiac function RISK FACTORS Height: 6'3", Weight: 273 DIMENSIONS LVDd 5.2 (3.8-5.7cm) LA (2D) 3.9 (1.9-4.0cm) Aortic Root 3.7 (2.0-3.7cm) LVDs 3.5 (2.5-4.0cm) LA (MM) (1.9-4.0cm) Aortic Cusp Exc 2.1 (1.5-2.0cm) EF (%) 60.0 (55-70%) Rt. Atrium 3.8 (1.9-4.0cm) Asc. Aorta cm IVSd 1.5 (0.7-1.1cm) RV (D) 3.7 (1.8-2.4cm) PWd 1.3 (0.7-1.1cm) Mitral Valve Mitral Mitral Stenosis E wave 0.81m/s MV Mean GR. mmHg A wave 0.98m/s MV Peak GR. mmHg E/A ratio 0.8 2D MVA cm2 DECEL Time 187ms PRESS 1/2 Time ms Aortic Valve Aortic Valve Aortic Stenosis V1 0.82m/s AO Mean GR. 4mmHg V2 1.33m/s AO Peak GR. 7mmHg LVOT Diameter 2.2 (1.8-2.4cm) Doppler GUILLERMINA 2.34cm2 Pulmonic Valve V2 0.84m/s Conclusion LV EF IS 65% AND NORMAL NORMAL VALVES NORMAL RV FUNCTION NO EFFUSION
--- NOTE | 2025-11-08 19:01 | DVHINCON2 ---
Date Seen: Nov 08, 2025 Referring Physician CHAVA Tam Reason for Consultation Elevated troponin History of Present Illness This is a 65-year-old male with a past medical history includes SVT in 2019 requiring adenosine administration, hypertension, dyslipidemia, renal carcinoma status post right nephrectomy in 2009, BPH, and obesity who presents to the emergency room with a complaint of palpitations. The patient reports that he was at home picking something up from his garage when suddenly he began to feel palpitations and dizziness. He also reports a burning smell. When symptoms did not subside, he decided to come to the emergency room for further evaluation. Upon emergency room arrival, a twelve lead electrocardiogram was performed and revealed supraventricular tachycardia. While undergoing a chest x-ray in the emergency room, the patient states that he was instructed to hold his breath and at that moment symptoms subsided. A repeat twelve lead electrocardiogram was performed and revealed that the patient was back in a normal sinus rhythm. At t he time of assessment, the patient remains in normal sinus rhythm. Initial troponin level of 27ng/L with up trend and current peak level at 658ng/L. The patient denies all cardiac symptoms. The patient reports that in 2019 he went to [facility] with similar symptoms and was found to have SVT. He reports that he required adenosine administration and that he converted back into a normal sinus rhythm. He followed up with a rivers and lakes boatman one time and states that he did not follow up after that.Patient was admitted to the hospital. I am asked to consult on this patient. Past Medical History Past medical history reviewed. No other significant than mentioned above. Past Surgical History Rate total nephrectomy Umbilical hernia repair Family History: FH: cancer G8 MOTHER G8 SISTER Allergies: Coded Allergies: NO KNOWN ALLERGIES (Unverified , 11/07/25) Home Meds Reported Medications Tamsulosin Hcl (Flomax) 0.4 Mg Cap, 1 CAP PO DAILY, #30 CAP 11 Refills 11/08/25 Current Medications Current Medications Medications (Trade) Dose Ordered Sig/Calvin Route PRN Reason Start Time Stop Time Status Last Admin Atorvastatin Calcium (Lipitor) 20 mg HS PO 11/07/25 22:00 11/07/25 20:08 Aspirin 81 mg DAILY PO 11/08/25 10:00 11/08/25 09:01 Tamsulosin HCl (Flomax) 0.4 mg QPM PO 11/08/25 18:00 11/08/25 17:24 Metoprolol Tartrate (Lopressor Tablet) 25 mg BID PO 11/07/25 22:00 11/08/25 09:02 Ceftriaxone Sodium 50 ml @ 100 mls/hr DAILY@09 IV 11/08/25 09:00 11/08/25 09:01 Sodium Chloride 1,000 ml @ 60 mls/hr [id number] IV 11/07/25 19:45 11/07/25 20:09 Acetaminophen/ Hydrocodone Bitart (Redfox 5/325MG Tab) 1 tab Q4HP PRN PO MODERATE PAIN (4-6 PAIN SCALE) 11/07/25 19:45 Ondansetron HCl (Zofran) 4 mg Q4HP PRN IV NAUSEA / VOMITING 11/07/25 19:45 Docusate Sodium (Colace Capsule) 100 mg BIDPRN PRN PO FOR CONSTIPATION 11/07/25 19:45 Acetaminophen (Tylenol Tablet) 650 mg Q6HP PRN PO PAIN SCALE 1-3 OR TEMP>100.4 11/07/25 19:45 Nitroglycerin (Ntrostat Sublingual) 0.4 mg Q5MINP PRN SL FOR CHEST PAIN 11/07/25 20:15 Morphine Sulfate 2 mg Q30M PRN IV FOR CHEST PAIN 11/07/25 20:15 Diagnostic Test (Pha) (Accu-Chek Comfort Curve T) 1 strip ACHS 11/08/25 07:00 11/08/25 11:26 Insulin Human Regular (InsuLIN R) ACHS SC 11/08/25 07:00 Dextrose 50 ml UD PRN IV Blood Sugar LESS THAN 60 11/07/25 23:00 Hydralazine HCl (Apresoline Injection) 10 mg Q6HP PRN IV SBP>160 11/08/25 17:15 11/08/25 17:25 Review of Systems Constitutional: No symptom reported Ears, Nose, & Throat: Burning smell Eyes: No symptom reported Neurological: Dizziness Pulmonary/Respiratory: No symptoms reported Cardiovascular: Palpitations Gastrointestinal: No symptom reported Genitourinary: No symptom reported Musculoskeletal: No symptom reported Skin: No symptom reported Psychiatric: No symptom reported Endocrine: No symptom reported Hematologic/Lymphatic: No symptom reported Vital Signs Vital Signs Date Time Temp Pulse Resp B/P (MAP) Pulse Ox O2 Delivery O2 Flow Rate FiO2 11/08/25 17:25 160/98 11/08/25 13:00 98.1 58 20 95 98.1 11/08/25 08:00 Room Air* 0 21 Physical Exam GENERAL: Alert and oriented x 3. No acute distress. Obese. EYES: PERRL, EOMI. Anicteric. HENT: Moist mucous membranes. LUNGS: Clear to auscultation bilaterally. CARDIOVASCULAR: Regular rate and rhythm. ABDOMEN: Soft, nontender and nondistended. EXTREMITIES: No edema. NEUROLOGIC: No focal neurological deficits. SKIN: Warm, dry. Labs/Diagnostic Data Labs Test 11/08/25 11:52 11/08/25 11:20 11/08/25 07:01 11/07/25 17:40 Range/Units Troponin I High Sensitivity 269 *H </=54 ng/L POC Glucose 93 70-106 mg/dl White Blood Count 8.2 # 4.4-10.8 10^3/uL Red Blood Count 5.14 4.5-5.90 10^6/uL Hemoglobin 14.8 13.5-17.5 g/dL Hematocrit 44.9 41.0-53.0 % Mean Corpuscular Volume 87.5 80.0-100.0 fL Mean Corpuscular Hemoglobin 28.9 28.0-32.0 pg Mean Corpuscular Hemoglobin Concent 33.0 32.0-36.0 g/dL Red Cell Distribution Width 13.3 11.8-14.3 % Platelet Count 207 140-450 10^3/uL Mean Platelet Volume 8.4 6.9-10.8 fL Neutrophils (%) (Auto) 66.9 37.0-80.0 % Lymphocytes (%) (Auto) 21.8 10.0-50.0 % Monocytes (%) (Auto) 9.2 0.0-12.0 % Eosinophils (%) (Auto) 1.5 0.0-7.0 % Basophils (%) (Auto) 0.6 0.0-2.0 % Neutrophils # (Auto) 5.5 1.6-8.6 10 ^3/uL Lymphocytes # (Auto) 1.8 0.4-5.4 10 ^3/uL Monocytes # (Auto) 0.8 0-1.3 10 ^3/uL Eosinophils # (Auto) 0.1 0-0.8 10 ^3/uL Basophils # (Auto) 0.1 0-0.2 10 ^3/uL Nucleated Red Blood Cells 0.1 % Sodium Level 142 136-145 mmol/L Potassium Level 4.6 3.5-5.1 mmol/L Chloride Level 106 98-107 mmol/L Carbon Dioxide Level 29 20-31 mmol/L Anion Gap 7 5-15 Blood Urea Nitrogen 13 9-23 mg/dL Creatinine 1.19 0.700-1.30 mg/dL Glomerular Filtration Rate Calc 69 >90 mL/min BUN/Creatinine Ratio 10.9 10.0-20.0 Serum Glucose 101 74-106 mg/dL Calcium Level 9.1 8.7-10.4 mg/dL Total Bilirubin 0.6 0.2-1.0 mg/dL Aspartate Amino Transferase (AST) 36 13-40 U/L Alanine Aminotransferase (ALT) 60 H 7-40 U/L Alkaline Phosphatase 71 46-116 U/L Total Protein 6.5 5.7-8.2 g/dL Albumin 4.0 3.2-4.8 g/dL Lactic Acid Level 1.5 0.4-2.0 mmol/L Test 11/07/25 17:15 11/07/25 15:45 Range/Units Urine Color Light-yellow Yellow Urine Clarity Clear Clear Urine pH 5.0 5.0-9.0 Urine Specific [place] 1.012 1.001-1.035 Urine Protein 1+ H Negative Urine Ketones Negative Negative Urine Blood Trace H Negative /uL Urine Nitrite Negative Negative Urine Bilirubin Negative Negative Urine Urobilinogen Normal Negative mg/dL Urine Leukocyte Esterase Negative Negative /uL Urine RBC 1 0 - 3 /hpf Urine Microscopic WBC 4 H 0-3 /HPF Urine Squamous Epithelial Cells Few <5 /hpf Urine Bacteria None seen None Seen /hpf Urine Mucus Few None Seen Urine Glucose Normal Normal mg/dL Hemoglobin A1c 6.0 H <5.7 % A1C Magnesium Level 2.0 1.6-2.6 mg/dL Thyroid Stimulating Hormone (TSH) 2.07 0.55-4.78 uIU/mL Assessment Supraventricular tachycardia, now normal sinus rhythm. NSTEMI, likely type 2 secondary to above. Rule out structural heart disease. History of SVT. Hypertension. Dyslipidemia. BPH. Alcohol use. Obesity. Plan/Recommendation I agree with your ongoing assessment and care of plan. Patient has been seen by Zuly Blair NP on my behalf, her and I discussed the plan with the patient. We will proceed with obtaining a transthoracic echocardiogram to evaluate cardiac function. Continue with low-dose beta-eddie as this is a class I recommendation. For acute management of SVT, vagal maneuvers and adenosine are recommended. Consider DC cardioversion if patient becomes unstable. Per ACC guidelines, long-term management should include watchful waiting, medic ation and possibly a catheter ablation if deemed necessary. The patient was also educated about abstaining from alcohol as this could be a possible trigger for SVT. The patient admits he drinks approximately one or more alcoholic drinks per day. The patient will need to establish a rivers and lakes boatman in the outpatient setting. The patient was given information about following up with me in the outpatient setting post discharge. Continue with close cardiac surveillance and notify cardiology team immediately for any ECG changes. In the setting of an unremarkable transthoracic echocardiogram, there is no further inpatient cardiac workup indicated. The patient may benefit from an outpatient event monitor and/or catheter ablation. This was discussed with the patient and he verbalized an understanding. Additional plan as per the hospital course. Plan discussed with: Patient NYHA Physical activity limitations: NA Date of Service: Nov 08, 2025 Billing Provider: TAIWO CROWLEY MD Cardiology Common Codes: [id number] INP/OBS CARE (High) Cardiology Consultation Codes: [id number] CONSULT <45MIN TAIWO CROWLEY MD Nov 08, 2025 17:33
[2025-11-09 01:00] VITALS: BP 143/99; PULSE 60; RESP 20; TEMP 98; O2SAT 94
[2025-11-09] MEDS: ACETAMINOPHEN 325 MG TAB PO PRN (04:39)
[2025-11-09 08:00] VITALS: PULSE 74; PULSE 78; RESP 24; O2SAT 98
[2025-11-09 09:00] VITALS: BP 161/94; PULSE 78; RESP 24; TEMP 98.5; O2SAT 98
--- NOTE | 2025-11-09 10:37 | ECG ---
[facility] Test Date: 2025-11-07 Test Time: 16:16:09 Pat Name: DEWAYNE PATEL Department: ED Room: 0285T Gender: M Ditch Rider: LUCIA : 1960 Requested By: RASHEEDA KAHN Order Number: [id number] Reading MD: Measurements Intervals [place] Rate: 90 P: 29 MD: 184 QRS: 46 QRSD: 82 T: 39 QT: 364 QTc: 446 Interpretive Statements Sinus rhythm Ventricular premature complex Please click the below link to view image of tracing.
[2025-11-09 12:33] VITALS: BP 153/98; PULSE 61; RESP 18; TEMP 97.6; O2SAT 96
[2025-11-09] MEDS ORDERED: MET25T PO (13:10)
[2025-11-09] MEDS ORDERED: ATOR20TA50 PO (13:10)
[2025-11-09] MEDS ORDERED: ASPI-325 PO (13:10)
--- NOTE | 2025-11-09 15:26 | DVHDS2 ---
Discharge Summary Date of Admission Nov 07, 2025 at 20:02 Date of Discharge: Nov 09, 2025 Labs/Diagnostic Data: Laboratory Results Test 11/09/25 11:14 11/08/25 11:52 11/08/25 07:01 11/07/25 17:40 POC Glucose 103 mg/dl (70-106) Troponin I High Sensitivity 269 ng/L (</=54) White Blood Count 8.2 10^3/uL (4.4-10.8) Red Blood Count 5.14 10^6/uL (4.5-5.90) Hemoglobin 14.8 g/dL (13.5-17.5) Hematocrit 44.9 % (41.0-53.0) Mean Corpuscular Volume 87.5 fL (80.0-100.0) Mean Corpuscular Hemoglobin 28.9 pg (28.0-32.0) Mean Corpuscular Hemoglobin Concent 33.0 g/dL (32.0-36.0) Red Cell Distribution Width 13.3 % (11.8-14.3) Platelet Count 207 10^3/uL (140-450) Mean Platelet Volume 8.4 fL (6.9-10.8) Neutrophils (%) (Auto) 66.9 % (37.0-80.0) Lymphocytes (%) (Auto) 21.8 % (10.0-50.0) Monocytes (%) (Auto) 9.2 % (0.0-12.0) Eosinophils (%) (Auto) 1.5 % (0.0-7.0) Basophils (%) (Auto) 0.6 % (0.0-2.0) Neutrophils # (Auto) 5.5 10 ^3/uL (1.6-8.6) Lymphocytes # (Auto) 1.8 10 ^3/uL (0.4-5.4) Monocytes # (Auto) 0.8 10 ^3/uL (0-1.3) Eosinophils # (Auto) 0.1 10 ^3/uL (0-0.8) Basophils # (Auto) 0.1 10 ^3/uL (0-0.2) Nucleated Red Blood Cells 0.1 % Sodium Level 142 mmol/L (136-145) Potassium Level 4.6 mmol/L (3.5-5.1) Chloride Level 106 mmol/L (98-107) Carbon Dioxide Level 29 mmol/L (20-31) Anion Gap 7 (5-15) Blood Urea Nitrogen 13 mg/dL (9-23) Creatinine 1.19 mg/dL (0.700-1.30) Glomerular Filtration Rate Calc 69 mL/min (>90) BUN/Creatinine Ratio 10.9 (10.0-20.0) Serum Glucose 101 mg/dL (74-106) Calcium Level 9.1 mg/dL (8.7-10.4) Total Bilirubin 0.6 mg/dL (0.2-1.0) Aspartate Amino Transferase (AST) 36 U/L (13-40) Alanine Aminotransferase (ALT) 60 U/L (7-40) Alkaline Phosphatase 71 U/L (46-116) Total Protein 6.5 g/dL (5.7-8.2) Albumin 4.0 g/dL (3.2-4.8) Lactic Acid Level 1.5 mmol/L (0.4-2.0) Test 11/07/25 17:15 11/07/25 15:45 Urine Color Light-yellow (Yellow) Urine Clarity Clear (Clear) Urine pH 5.0 (5.0-9.0) Urine Specific [place] 1.012 (1.001-1.035) Urine Protein 1+ (Negative) Urine Ketones Negative (Negative) Urine Blood Trace /uL (Negative) Urine Nitrite Negative (Negative) Urine Bilirubin Negative (Negative) Urine Urobilinogen Normal mg/dL (Negative) Urine Leukocyte Esterase Negative /uL (Negative) Urine RBC 1 /hpf (0 - 3) Urine Microscopic WBC 4 /HPF (0-3) Urine Squamous Epithelial Cells Few /hpf (<5) Urine Bacteria None seen /hpf (None Seen) Urine Mucus Few (None Seen) Urine Glucose Normal mg/dL (Normal) Hemoglobin A1c 6.0 % A1C (<5.7) Magnesium Level 2.0 mg/dL (1.6-2.6) Thyroid Stimulating Hormone (TSH) 2.07 uIU/mL (0.55-4.78) Other Laboratory Tests 11/08/25 07:01 Brief Hx & Hospital Course: 65-year-old male with past medical history of kidney cancer, hypertension, hernia, hyperlipidemia, and enlarged prostate who presented to [facility] ED with complaint of palpitations. Patient reports that he has been experiencing racing heart associated with shortness of breaths, dizziness, getting worse that prompted this visit. Patient reports being seen at [facility] urgent care, however was referred to the ED due to elevated heart rate in the 160s. Patient reports burning smell and her family did not have the same smell sensation, reports similar symptoms 6 years ago and was seen by biology research assistant who performed a full cardiac evaluation and found no abnormalities..Patient was seen and evaluated in the ED, laboratory data shows WBC 11.9, platelets 237, sodium 138, potassium 3.9, BUN 22, creatinine 1.31, GFR 61, glucose 161, hemoglobin A1c 6.0, calcium 8.8, lactic acid 2.6 trending down to 1.5, troponin 88, TSH 2.07, AST 51, ALT 74, blood pressure 114/77, heart rate 180 trending down to 96, temperature 98.1 F, O2 saturation 95% on oxygen. Chest x-ray show no acute cardiopulmonary disease. Please see medication orders section in the computer. On my assessment, patient denied chest pain, no headache, dizziness, diaphoresis, shortness of breaths, no abdominal pain, diarrhea, nausea, vomiting, fever, no chills. Patient was admitted for further evaluation and medical management. Converted to sinus and had echo cardiology recommended oral metoprolol Condition at Discharge: Good Final Diagnosis/Problems List SVT NSTEMI due to type 2 CO Discharge Disposition: Home Discharge Instruct/Medications Diet: Regular Activity: No Restrictions, As Tolerated Follow Up/Referral: pCP in 7 days Medications: metoprolol, aspirin Scheduled Aspirin (Aspirin Low Dose), 81 MG PO DAILY Atorvastatin Calcium (Atorvastatin Calcium), 20 MG PO HS Metoprolol Tartrate (Lopressor), 25 MG PO BID Tamsulosin Hcl (Flomax), 1 CAP PO DAILY, (Reported) Discharge Statement: "Patient was advised to return to the ER or call 911 if any headaches, dizziness, shortness of breath, chest pain, abdominal pain, bleeding, fevers, or worsening of medical condition. Patient was counseled about treatment plan, medications, possible side effects, patientverbalized understanding. All questions were answered to the best of my ability. This discharge took greater then 30 minutes in planning, reviewing documentation, counseling the patient, and discussing with other team members." ASSESSMENT ASSESSMENT Assessment SVT Date of Service: Nov 09, 2025 Billing Provider: FABIAN NORTH MD Common Visit Codes: 83849-ILR/OBS DISCH DAY >30min FABIAN NORTH MD Nov 09, 2025 15:26
--- NOTE | 2025-11-10 01:22 | DVHPN2 ---
Progress Note - Dictate Date Seen: Nov 09, 2025 Medical Necessity Reason Pt with a Central, PICC or Fol: No Subjective Patient was seen and evaluated in follow up. No overnight events. Echo shows LV EF of 65%. Patient is cardiac stable for discharge. Telemetry reviewed. vital signs Vital Sign Date Time Temp Pulse Resp B/P (MAP) Pulse Ox O2 Delivery O2 Flow Rate FiO2 11/09/25 12:33 97.6 61 18 153/98 (116) 96 97.6 11/09/25 08:00 Room Air* 0 21 Total Intake and Output 11/09/25 11/09/25 11/10/25 15:00 23:00 07:00 Intake Total 170 ml Balance 170 ml objective GENERAL: Alert and oriented x 3. No acute distress. Obese. EYES: PERRL, EOMI. Anicteric. HENT: Moist mucous membranes. LUNGS: Clear to auscultation bilaterally. CARDIOVASCULAR: Regular rate and rhythm. ABDOMEN: Soft, nontender and nondistended. EXTREMITIES: No edema. NEUROLOGIC: No focal neurological deficits. SKIN: Warm, dry. laboratory and microbiology Laboratory Tests 11/08/25 07:01 Test 11/08/25 07:01 Range/Units Serum Glucose 101 74-106 mg/dL Problem List Supraventricular tachycardia, now normal sinus rhythm. NSTEMI, likely type 2 secondary to above. Rule out structural heart disease. History of SVT. Hypertension. Dyslipidemia. BPH. Alcohol use. Obesity. Assessment/Plan Continued all current supportive medical care. Continue with low-dose beta-eddie as this is a class I recommendation. For acute management of SVT, vagal maneuvers and adenosine are recommended. Consider DC cardioversion if patient becomes unstable. Per ACC guidelines, long-term management should include watchful waiting, medication and possibly a catheter ablation if deemed necessary. The patient was also educated about abstaining from alcohol as this could be a possible trigger for SVT. The patient admits he drinks approximately one or more alcoholic drinks per day. The patient will need to establish a robotype operator in the outpatient setting. The patient was given information about following up with me in the outpatient setting post discharge. Continue with close cardiac surveillance and notify cardiology team immediately for any ECG changes. In the setting of an unremarkable transthoracic echocardiogram, there is no further inpatient cardiac workup indicated. The patient may benefit from an outpatient event monitor and/or catheter ablation. This was discussed with the patient and he verbalized an understanding. Additional plan as per the hospital course. Plan discussed with: Patient TAIWO CROWLEY MD Nov 10, 2025 01:22
== END 2025-11-09 16:21 | disposition home or self-care (01) | DRG 282 ==
LOC: ER 15:08 → OVERFLOW 20:02 → TELE-WESTW 22:51
PROVIDERS: ADMIT Hospitalist; ATTEND Hospitalist
DX: I47.10 Supraventricular tachycardia, unspecified (principal); I21.A1 Myocardial infarction type 2; I10 Essential (primary) hypertension; E66.9 Obesity, unspecified; R73.9 Hyperglycemia, unspecified; E78.5 Hyperlipidemia, unspecified; Z68.34 Body mass index [BMI] 34.0-34.9, adult; N40.0 Benign prostatic hyperplasia without lower urinary tract symptoms; D72.829 Elevated white blood cell count, unspecified; Z85.528 Personal history of other malignant neoplasm of kidney; Z90.5 Acquired absence of kidney
CPT/HCPCS: 36415; 71045; 80053; 81001; 82962; 83036; 83605; 83735; 84443; 84484; 85025; 93005; 93306; 96365; G0378